=== PATIENT | male | born 2000 | race Caucasian/White ===

== ENCOUNTER 2019-09-21 18:00 | Emergency (ER) | payer OTHER ==
--- NOTE | 2019-09-21 18:30 | RAD ---
XR Ankle Rt 3 View STANDARD INDICATION: Right ankle pain COMPARISON: None. FINDINGS: Bones: Intact. Ankle mortise: Symmetric. Talar Dome: Intact. Subtalar joint: Normal. Visualized hindfoot: Normal. Periarticular soft tissues: Normal. IMPRESSION: 1. No acute fracture or subluxation demonstrated.
== END 2019-09-21 18:50 | disposition home or self-care (01) ==
LOC: NAV ERS 18:00
DX: S93.401A Sprain of unspecified ligament of right ankle, initial encounter (principal); F17.290 Nicotine dependence, other tobacco product, uncomplicated; V87.8XXA Person injured in other specified noncollision transport accidents involving motor vehicle (traffic), initial encounter; Y99.0 Civilian activity done for income or pay
CPT/HCPCS: 99001

== ENCOUNTER 2021-10-26 09:00 | Emergency (ER) | payer OTHER ==
[2021-10-26] MEDS ORDERED: TETANUS, DIPHTHERIA TOX,ADULT (TDVAX) 0.5 ML VIAL IM ONE (09:15)
[2021-10-26] MEDS ORDERED: Boostrix 0.5 ML (Tdap) VIAL ONE (09:16)
[2021-10-26] MEDS ORDERED: Lidocaine 1% w/Epinephrine 1:100K 20 ML VIAL ONE (09:21)
[2021-10-26] MEDS ORDERED: Bacitracin 1 PK ONE (09:25)
== END 2021-10-26 10:20 | disposition home or self-care (01) ==
LOC: NAV ERS 09:00
DX: S51.812A Laceration without foreign body of left forearm, initial encounter (principal); F17.290 Nicotine dependence, other tobacco product, uncomplicated; W26.9XXA Contact with unspecified sharp object(s), initial encounter; Y92.69 Other specified industrial and construction area as the place of occurrence of the external cause; Z23 Encounter for immunization
CPT/HCPCS: 12004; 90471; 90714; 90715; 99001